=== PATIENT | male | born 1950 | race Caucasian/White ===

== ENCOUNTER 2023-10-02 12:20 | Emergency (ER) | payer MEDICARE, SELFPAY ==
--- NOTE | ~2023-10-02 | XR_ITS ---
EXAMINATION: XR chest 2V DATE: 10/02/2023 13:06 INDICATION: Shortness of breath. Cough. TECHNIQUE: Frontal and lateral views of the chest were obtained. COMPARISON: Chest 2 views 05/21/2015 FINDINGS: There is no pneumonia, pleural effusion, or pneumothorax. The heart size is normal. There i s mild chronic anterior wedging of multiple vertebral bodies. IMPRESSION: 1. No acute cardiopulmonary disease. Reviewed, dictated and finalized at location A.
[2023-10-02 12:28] VITALS: BP 135/86; PULSE 82; RESP 18; TEMP 36.6; O2SAT 97
--- NOTE | 2023-10-02 12:52 | ED.URI ---
HPI - URI/Sore Throat General Chief Complaint: Upper Respiratory Infection Stated Complaint: deep chest cough/weezing/fever Time Seen by Provider: 10/02/23 12:40 Source: patient Mode of arrival: ambulatory Limitations: no limitations History of Present Illness HPI Narrative: 73 year old male accompanied by spouse presents to express care with complaints of having severe cough for about 3 days with some shortness of breath with activity voiced. Patient reports that he has been sleeping in the recliner because of his cough. Patient reports that he has coughed so hard that his ribs hurt.Patient reports that he has been taking cough medication and using Vicks rub. Patient reports that he has had low grade fevers and has felt chilled at times. MD elicited complaint: fever (low grade), cough, rhinorrhea, nasal congestion and other (SOB) Onset (ago): day(s) (3) Severity: moderate Description of mucous: yellow and green Able to tolerate fluids by mouth: Yes Exacerbating factors: exertion Treatments prior to arrival: other (cough medication and Vicks rub) Related Data Home Medications Medication Instructions Recorded Confirmed levothyroxine 112 mcg tablet 112 mcg PO DAILY 10/02/23 10/02/23 naproxen 250 mg tablet 250 mg PO BID PRN Pain 10/02/23 10/02/23 Allergies Allergy/AdvReac Type Severity Reaction Status Date / Time niacin Allergy Hives Verified 10/02/23 12:39 [From [facility] Extended-Release] Review of Systems Review of Systems: CONSTITUTIONAL: reports low grade fever, chills, or sweats. EYES: Denies visual changes, redness, or discharge. ENT: Denies rhinorrhea, congestion, no sore throat, or otalgia. CARDIOVASCULAR: Denies chest pain, palpitations, or edema. RESPIRATORY: Reports cough and dyspnea with exertion. GASTROINTESTINAL: Denies abdominal pain, nausea, vomiting, or diarrhea. GENITOURINARY: Denies dysuria or hematuria. SKIN: Denies rash or itching. MUSCULOSKELETAL: Denies back pain, joint pain, or myalgia. NEUROLOGIC: Denies headache, numbness, or weakness. PSYCHIATRIC: Denies anxiety or depression. All systems reviewed & are unremarkable except as noted in HPI and below PMFSH Past Medical History Medical History (Updated 10/03/23 @ 00:01 by Background Daemon) Hypothyroidism Surgical History Surgical History (Updated 10/02/23 @ 14:06 by Twila Wilson NP) H/O hernia repair Social History Social History (Updated 10/02/23 @ 14:04 by Twila Wilson NP) Smoking status: Former smoker Tobacco type: cigarettes Additional smoking assessment comments: 1973 Alcohol intake: never Substance use: never Living arrangements: with family Gender identity (if verbalized by the patient): Male Comments At time of signature, agree with nursing past medical, surgical, social and family history. There is no relevant family history pertinent to the presenting complaint Exam Narrative: GENERAL: Well-appearing, well-nourished, and in no acute distress. HEAD: Normocephalic, atraumatic. EYES: PERRLA and EOMI. ENT: Nares clear, positive for greenish tinged rhinorrhea no epistaxis. Mucous membranes moist. TM's normal throat pink with no lesions or exudates. throat pink with no swelling NECK: Supple.no lymphadenopathy CHEST: Scattered wheezing to auscultation. No acute respiratory distress cough noted harsh at times productive of green yellow phlegm, SAO2 97% on room air. HEART: Regular rate and rhythm. No murmur heard. Normal peripheral pulses. ABDOMEN: Soft, nontender, nondistended, normal active bowel sounds. EXTREMITIES: Normal range of motion. No edema. SKIN: Warm, dry, no rash. NEURO: No focal deficits. Alert and oriented x3. Course Course Emergency Course: Patient is aware of diagnosis, understands and agrees to treatment plan.? Anticipatory guidance given.? Patient agrees to follow-up as directed and is aware of reasons to seek care at the emergency department. Portions of thi
== END 2023-10-02 13:44 | disposition home or self-care (01) ==
PROVIDERS: Emergency Provider Registered Nurse; PCP Family Medicine
DX: J40 Bronchitis, not specified as acute or chronic (principal); E03.9 Hypothyroidism, unspecified; Z87.891 Personal history of nicotine dependence
CPT/HCPCS: 71046; 99213; G0463